=== PATIENT | female | born 1980 | race Caucasian/White ===

== ENCOUNTER 2020-01-17 18:46 | Observation (INO) | payer SELFPAY ==
[~2020-01-17] VITALS: Ht 165.1 cm; Wt 74.7 kg
[~2020-01-17 18:46] MED LIST: KLONOPIN 0.5MG0.5 MG PO; TUSS PO; ZITHROMAX 250M250 MG PO
--- NOTE | 2020-01-17 20:45 | NUR ---
Arrived to room 324 via wheelchair from home-direct admit. Oriented to room/policy. Admission assessment complete. VS stable. Plan of care discussed for pain control/IV antibiotics/need for UA. Verbalizes understanding. Dr Ortega here to see patient. Call light in reach. Will monitor.
--- NOTE | 2020-01-17 21:00 | NUR ---
C/O pain to right flank into pelvis. Describes pain as throbbing/cramping/shooting pain-rated 8/10 on pain scale-morphine given per dr order. Will monitor.
[2020-01-17 21:09] VITALS: BP 111/60; PULSE 65; TEMP 98.4
--- NOTE | 2020-01-17 21:45 | NUR ---
Called with c/o nausea. Zofran given per dr order.
--- NOTE | 2020-01-17 22:10 | NUR ---
Still rating pain 8/10 on pain scale. Second dose of morphine given per dr order. Also received percocet [address] order. WIll monitor.
[2020-01-17 23:55] VITALS: BP 107/66; PULSE 66; TEMP 98
[2020-01-18] VITALS (9 sets, daily range): BP systolic 117–128; BP diastolic 60–74; PULSE 69–92; TEMP 97.9–98.4
--- NOTE | 2020-01-18 04:15 | NUR ---
Has rested well most of this shift. Received IV pain medication with good results. C/O nausea x1-zofran given with good results. NPO since midnight. Consent signed and on chart for procedure later today. Voiding without difficulty. IV fluids-D5 1/2 NS@125ml/hr to right wrist INT. Urine sent to lab earlier this shift. SCDs bilat. Call light in reach. Will monitor.
--- NOTE | 2020-01-18 05:25 | NUR ---
Called with c/o pain to right flank/pelvis-described as throbbing-rating pain 8/10. Morphine 2mg per dr order. Scheduled toradol given. Will monitor.
--- NOTE | 2020-01-18 09:45 | NUR ---
Patient alert and oriented, answers questions appropriately. See assessment. No c/o urinary pain, frequency or hesitancy. Voiding adequate amounts, urine strained. C/o right flank pain 4. No other c/o at this time.
--- NOTE | 2020-01-18 09:58 | NUR ---
NIKITA met with the patient to complete initial intake. The patient lives alone in [place]. The patient denies DME use and is independent with ADLs. The patient receives medical care at [facility] in [place] and medication from [facility] in [place] or in [place]. The patient does not have advanced directives in the EMR and was not interested in a DPOA-HC form. She is not and has children but not over 18. She states that any medical decisions can be made by her parents. Her father, Izaiah Aparicio lives in [place], [place] ([phone]) and mother, Nivia Brand lives in [place], [place] ([phone]). The patient plans to return home at discharge. The patient is self-pay and states that the [facility] in [place], [place] needs to be billed. She states they authorized her to come here from [facility] due this hospital having the specialist she needed. NIKITA staffed with Lien in [facility] and she stated NIKITA needs to make contact. NIKITA attempted to contact Chloe the [facility] ([phone]), to obtain the information needed, left message. Will continue to follow.
--- NOTE | 2020-01-18 10:29 | NUR ---
Patient to surgery with surgical staff at this time.
--- NOTE | 2020-01-18 14:15 | NUR ---
Patient returns from cysto. Post op VS initiated. Assessment unchanged except stents taped to groin. Pain /10. Assisted to bathroom. Lunch box given to patient per her request.
--- NOTE | 2020-01-18 17:31 | NUR ---
Discharge instructions reviewed with patient, verbalized understanding. Discharged via wheelchair to auto/home with family at 1730.
== END 2020-01-18 17:30 | disposition home or self-care (01) ==
LOC: MEDICAL 18:46 → SURG 20:02
PROVIDERS: ADMIT Urology
DX: N20.1 Calculus of ureter (principal)
CPT/HCPCS: A9284; C1769; C2617; G0378; G0379; J0690; J1100; J1170; J1885; J1956; J2175; J2270; J2405; J2704; J3010

== ENCOUNTER → 2020-05-18 | Outpatient (CLI) | payer SELFPAY | LOC: ZCOL.LAB 15:34 | DX: J02.9 Acute pharyngitis, unspecified (principal); Z20.828 Contact with and (suspected) exposure to other viral communicable diseases ==